=== PATIENT | female | born 1995 ===

== ENCOUNTER 2020-11-10 06:08 | Inpatient (IN) ==
[2020-11-10 07:03] LABS: Bilirubin,Urine Negative (Negative); Blood, Urine Moderate mg/dL (Negative); Glucose,Urine (UA) Negative (Negative); Ketones,Urine Negative (Negative); Nitrite,Urine Negative (Negative); Protein,Urine Negative; RBC,Urine 10 /HPF (0-4); Squamous Epithelial Cell,Urine Occasional /HPF (0-10); Urine Appearance CLEAR (Clear); Urine Color Straw (Yellow); Urine Specific Gravity 1.006 (1.001-1.035); Urine Urobilinogen < 2.0 EU/DL (0.2-1.0)
[2020-11-10] MEDS ORDERED: MEPERIDINE 50 MG/1 ML VIAL IV PRN ×2 (07:59→08:08)
[2020-11-10] MEDS ORDERED: ONDANSETRON 4 MG/2 ML VIAL IV PRN ×2 (07:59→19:08)
[2020-11-10] MEDS ORDERED: OXYTOCIN/LR 20 UNIT/1,000 ML BAG IV SCH (08:00)
[2020-11-10] MEDS ORDERED: AMPICILLIN INJ 2,000 MG in SODIUM CHLORIDE 0.9% 100 ML IV ONE (08:11)
[2020-11-10 08:25] LABS: Basophils % 0.2 % (0.0-0.8); Eosinophils # 0.1 10*3/uL (0.0-0.87); Eosinophils % 0.4 % (0.00-10.9); Hematocrit 40.2 VOL% (35.7-47.0); Hemoglobin 13.7 GM/DL (12.0-16.0); Immature Granulocytes % 0.9 %; Immature Granulocytes Absolute 0.13 #; Lymphocytes % 13.2 % (21.3-54.2); Mean Corpuscular HGB Conc 34.1 GM/DL (32-36); Mean Platelet Volume 9.6 FL (9.6-12.0); Neutrophils % 81.3 % (38.7-73.9); Platelet Count 281 T/CUMM (130-400); Red Blood Count 4.42 MC/CUMM (3.8-5.5); Red Cell Distribution Width 12.2 % (9.3-17.3)
[2020-11-10] MEDS: LACTATED RINGERS 1,000 ML IV SCH ×2 (08:34→18:55)
[2020-11-10] MEDS ORDERED: CITRIC ACID/SODIUM CITRATE 30 ML UDCUP PO ONE (08:52)
[2020-11-10] MEDS ORDERED: ePHEDrine 50 MG/ML VIAL IV PRN (08:52)
[2020-11-10] MEDS ORDERED: PROMETHAZINE 25 MG/1 ML VIAL IM ONE (08:52)
[2020-11-10] MEDS ORDERED: FAMOTIDINE 20 MG/2 ML VIAL IV ONE (08:52)
[2020-11-10] MEDS ORDERED: diphenhydrAMINE 50 MG/1 ML VIAL IV PRN ×2 (08:52)
[2020-11-10] MEDS ORDERED: hydrOXYzine HCL 25 MG/1 ML VIAL IM PRN (08:52)
[2020-11-10] MEDS ORDERED: NALOXONE 0.4 MG/ML VIAL IV PRN (08:52)
[2020-11-10] MEDS ORDERED: fentaNYL 2 MCG/ROPIV 0.2% EPID 100 ML EPIDURAL SCH (09:00)
[2020-11-10 09:02] LABS: Hepatitis B Surface Ag Quant < 0.10 Index; Hepatitis B Surface Ag Result Non-Reactive (NonReactive)
[2020-11-10] MEDS ORDERED: fentaNYL 2 MCG/ROPIV 0.2% EPID 100 ML EPIDURAL ONE (09:05)
[2020-11-10] MEDS ORDERED: ePHEDrine 50 MG/ML VIAL ONE (09:05)
[2020-11-10 09:30] LABS: HIV Antigen/Antibody Result Nonreactive (Nonreactive); Rubella Antibody IgG Result Reactive (NonReactive)
[2020-11-10 11:25] LABS: Bilirubin,Urine Negative (Negative); Blood, Urine Negative (Negative); Glucose,Urine (UA) Negative (Negative); Ketones,Urine Negative (Negative); Mucus,Urine Occasional /LPF (Occasional); Nitrite,Urine Negative (Negative); Protein,Urine Negative; RBC,Urine 1 /HPF (0-4); Squamous Epithelial Cell,Urine Occasional /HPF (0-10); Urine Appearance CLEAR (Clear); Urine Color Yellow (Yellow); Urine Specific Gravity 1.012 (1.001-1.035); Urine Urobilinogen < 2.0 EU/DL (0.2-1.0)
[2020-11-10] MEDS ORDERED: AMPICILLIN INJ 1,000 MG in SODIUM CHLORIDE 0.9% 100 ML IV SCH (12:30)
[2020-11-10] MEDS ORDERED: OXYTOCIN/LR 30 UNIT/1,000 ML BAG IV PRN (14:41)
[2020-11-10] MEDS ORDERED: miSOPROStoL 200 MCG TABLET ONE (15:15)
[2020-11-10] MEDS ORDERED: TRANEXAMIC ACID 1,000 MG/10 ML VIAL ONE (15:15)
[2020-11-10] MEDS ORDERED: CARBOPROST TROMETHAMINE 250 MCG/ML AMP IM ONE (15:16)
[2020-11-10] MEDS ORDERED: METHYLERGONOVINE 0.2 MG/1 ML AMP ONE (15:16)
[2020-11-10 17:19] LABS: Cord Venous Blood HCO3 18.9 MMOL/L; Cord Venous Blood PCO2 56.4 MMHG; Cord Venous Blood PO2 24.6
[2020-11-10 17:21] LABS: Cord Arterial Blood HCO3 16.6 MMOL/L
[2020-11-10] MEDS ORDERED: ACETAMINOPHEN 325 MG TABLET PO PRN (19:08)
[2020-11-10] MEDS ORDERED: MAGNESIUM HYDROXIDE SUSP 30 ML UDCUP PO PRN (19:08)
[2020-11-10] MEDS ORDERED: LACTATED RINGERS 1,000 ML IV SCH (19:08)
[2020-11-10] MEDS ORDERED: SIMETHICONE CHEW 80 MG TABLET PO PRN (19:08)
[2020-11-10] MEDS ORDERED: OXYTOCIN/LR 20 UNIT/1,000 ML BAG IV ONE (19:08)
[2020-11-10] MEDS ORDERED: RHO(D) IMMUNE GLOBULIN 300 MCG SYRINGE IM ONE (19:08)
[2020-11-10] MEDS: IBUPROFEN 800 MG TABLET PO PRN (19:49)
[2020-11-10] MEDS: DOCUSATE SODIUM 100 MG CAPSULE PO SCH (22:20)
[2020-11-10] MEDS ORDERED: BENZOCAINE 20%/MENTHOL 0.5% SPRAY 56 GM CAN TOP PRN (22:57)
[2020-11-11] MEDS: IBUPROFEN 800 MG TABLET PO PRN ×2 (03:02→21:30)
[2020-11-11 04:27] LABS: Basophils % 0.1 % (0.0-0.8); Eosinophils % 0.2 % (0.00-10.9); Hematocrit 29.6 VOL% (35.7-47.0); Immature Granulocytes % 0.9 %; Immature Granulocytes Absolute 0.16 #; Lymphocytes # 2.1 10*3/uL (1.4-4.0); Lymphocytes % 12.4 % (21.3-54.2); Mean Corpuscular HGB Conc 33.4 GM/DL (32-36); Mean Corpuscular Volume 93.1 FL (87-102); Mean Platelet Volume 9.8 FL (9.6-12.0); Monocytes % 5.8 % (1.7-12.7); Neutrophils % 80.6 % (38.7-73.9); Red Cell Distribution Width 12.5 % (9.3-17.3); White Blood Count 17.3 T/CUMM (4-12)
[2020-11-11 04:30] LABS: Hemoglobin 9.9 GM/DL (12.0-16.0); Platelet Count 212 T/CUMM (130-400); Red Blood Count 3.18 MC/CUMM (3.8-5.5)
[2020-11-11] MEDS: DOCUSATE SODIUM 100 MG CAPSULE PO SCH ×2 (08:42→21:30)
[2020-11-11] MEDS: MULTIVITAMIN (PRENATAL) TABLET PO SCH (08:42)
[2020-11-12] MEDS: IBUPROFEN 800 MG TABLET PO PRN (08:05)
[2020-11-12] MEDS: DOCUSATE SODIUM 100 MG CAPSULE PO SCH (08:05)
[2020-11-12] MEDS: MULTIVITAMIN (PRENATAL) TABLET PO SCH (08:05)
[2020-11-12 09:12] VITALS: BP 147/90
[2020-11-12] MEDS ORDERED: DIPH/TET/ACEL PERT BOOSTER VACCINE 0.5 ML VIAL IM ONE (11:10)
== END 2020-11-12 13:35 | disposition home or self-care (01) | DRG 560 ==
LOC: N.LDOUT 06:08 → N.LD 06:11 → N.OB 21:00
PROVIDERS: ADMIT Obstetrics & Gynecology; ATTEND Obstetrics & Gynecology

== ENCOUNTER 2022-03-12 10:18 | Inpatient (IN) ==
[2022-03-12] MEDS: LACTATED RINGERS 1,000 ML IV SCH ×2 (10:56→12:11)
[2022-03-12] MEDS ORDERED: PROMETHAZINE 25 MG/1 ML VIAL IM ONE (10:57)
[2022-03-12] MEDS: MEPERIDINE 50 MG/1 ML VIAL IV PRN (12:11)
[2022-03-12] MEDS ORDERED: METHYLERGONOVINE 0.2 MG/1 ML AMP IM PRN (15:57)
[2022-03-12] MEDS ORDERED: TRANEXAMIC ACID 1,000 MG in SODIUM CHLORIDE 0.9% 100 ML IV PRN (15:57)
[2022-03-12] MEDS ORDERED: ONDANSETRON 4 MG/2 ML VIAL IV PRN (15:57)
[2022-03-12] MEDS ORDERED: CARBOPROST TROMETHAMINE 250 MCG/ML AMP IM PRN (15:57)
[2022-03-12] MEDS ORDERED: OXYTOCIN/LR 20 UNIT/1,000 ML BAG IV ONE (15:57)
[2022-03-12] MEDS ORDERED: miSOPROStoL 200 MCG TABLET RECTAL PRN (15:57)
[2022-03-12] MEDS ORDERED: LACTATED RINGERS 500 ML IV PRN (15:57)
[2022-03-12] MEDS ORDERED: LACTATED RINGERS 1,000 ML IV SCH (16:00)
[2022-03-12 16:39] LABS: Basophils % 0.3 % (0.0-0.8); Eosinophils # 0.1 10*3/uL (0.0-0.87); Eosinophils % 0.9 % (0.00-10.9); Hematocrit 40.9 VOL% (35.7-47.0); Hemoglobin 13.8 GM/DL (12.0-16.0); Immature Granulocytes % 2.1 %; Immature Granulocytes Absolute 0.21 #; Lymphocytes # 2.2 10*3/uL (1.4-4.0); Lymphocytes % 22.6 % (21.3-54.2); Mean Corpuscular HGB Conc 33.7 GM/DL (32-36); Mean Corpuscular Volume 91.7 FL (87-102); Mean Platelet Volume 9.6 FL (9.6-12.0); Monocytes # 0.4 10*3/uL (0.11-0.8); Monocytes % 4.5 % (1.7-12.7); Neutrophils % 69.6 % (38.7-73.9); Platelet Count 237 T/CUMM (130-400); Red Blood Count 4.46 MC/CUMM (3.8-5.5); White Blood Count 9.8 T/CUMM (4-12)
[2022-03-12 16:57] LABS: Albumin 2.5 G/DL (3.4-5.0); Bilirubin,Total 0.4 MG/DL (0.20-1.00); Calcium 8.5 MG/DL (8.5-10.1); Osmolality,Calculated 271.7 MOS/KG (273-304); Potassium 4.1 MMOL/L (3.5-5.1)
[2022-03-13] MEDS ORDERED: OXYTOCIN/LR 20 UNIT/1,000 ML BAG IV SCH (00:01)
[2022-03-13] MEDS ORDERED: AMPICILLIN INJ 2,000 MG in SODIUM CHLORIDE 0.9% 100 ML IV ONE (00:01)
[2022-03-13] MEDS: MEPERIDINE 50 MG/1 ML VIAL IV PRN (03:05)
[2022-03-13] MEDS: AMPICILLIN INJ 1,000 MG in SODIUM CHLORIDE 0.9% 100 ML IV SCH ×3 (03:48→12:58)
[2022-03-13] MEDS ORDERED: PROMETHAZINE 25 MG/1 ML VIAL IM ONE (03:57)
[2022-03-13] MEDS ORDERED: hydrOXYzine HCL 25 MG/1 ML VIAL IM PRN (03:57)
[2022-03-13] MEDS ORDERED: LACTATED RINGERS 1,000 ML IV ONE (03:57)
[2022-03-13] MEDS ORDERED: ePHEDrine 50 MG/ML VIAL IV PRN (03:57)
[2022-03-13] MEDS ORDERED: diphenhydrAMINE 50 MG/1 ML VIAL IV PRN ×2 (03:57)
[2022-03-13] MEDS ORDERED: NALOXONE 0.4 MG/ML VIAL IV PRN (03:57)
[2022-03-13] MEDS ORDERED: LACTATED RINGERS 1,000 ML IV SCH (04:00)
[2022-03-13] MEDS ORDERED: NIFEdipine 10 MG CAPSULE PO ONE (04:00)
[2022-03-13] MEDS ORDERED: NIFEdipine 10 MG CAPSULE PO PRN (04:30)
[2022-03-13] MEDS ORDERED: FAMOTIDINE 20 MG/2 ML VIAL IV ONE (05:00)
[2022-03-13] MEDS ORDERED: CITRIC ACID/SODIUM CITRATE 30 ML UDCUP PO ONE (05:00)
[2022-03-13] MEDS: fentaNYL 2 MCG/ROPIV 0.2% EPID 100 ML EPIDURAL SCH ×3 (05:30→13:03)
[2022-03-13 06:53] LABS: Glucose,Urine (UA) Negative (Negative); Ketones,Urine Negative (Negative); Mucus,Urine Occasional /LPF (Occasional); Nitrite,Urine Negative (Negative); Protein,Urine Negative (Negative); RBC,Urine <1 /HPF (0-4); Urine Appearance Clear (Clear); Urine Color Yellow (Yellow); Urine Specific Gravity 1.015 (1.001-1.035); Urine pH 6.5 (4.5-8.0)
[2022-03-13 06:54] LABS: Bilirubin,Urine Negative (Negative); Blood, Urine Trace mg/dL (Negative); Urine Urobilinogen 0.2 eU/dL (<2.0)
[2022-03-13] MEDS ORDERED: OXYTOCIN/LR 30 UNIT/1,000 ML BAG IV ONE (07:39)
[2022-03-13] MEDS ORDERED: diphenhydrAMINE 50 MG/1 ML VIAL IV ONE (10:28)
[2022-03-13] MEDS ORDERED: SODIUM CHLORIDE 0.9% 0 ML IV ONE (13:23)
[2022-03-13] MEDS ORDERED: miSOPROStoL 200 MCG TABLET ONE (13:23)
[2022-03-13] MEDS ORDERED: METHYLERGONOVINE 0.2 MG/1 ML AMP ONE (13:23)
[2022-03-13] MEDS ORDERED: CARBOPROST TROMETHAMINE 250 MCG/ML AMP IM ONE (13:23)
[2022-03-13] MEDS ORDERED: TRANEXAMIC ACID 1,000 MG/10 ML VIAL ONE (13:23)
[2022-03-13 14:19] LABS: Cord Venous Blood HCO3 21.2 MMOL/L; Cord Venous Blood PCO2 53.4 MMHG; Cord Venous Blood PO2 28.9
[2022-03-13] MEDS ORDERED: LIDOCAINE 1% 20 ML VIAL IM ONE (15:44)
[2022-03-13] MEDS ORDERED: OXYTOCIN/LR 20 UNIT/1,000 ML BAG IV ONE ×2 (15:56→17:48)
[2022-03-13] MEDS ORDERED: RHO(D) IMMUNE GLOBULIN 300 MCG SYRINGE IM ONE (17:48)
[2022-03-13] MEDS ORDERED: MEASLES/MUMPS/RUBELLA VACCINE 0.5 ML VIAL SUBCUT ONE (17:48)
[2022-03-13] MEDS ORDERED: DIPH/TET/ACEL PERT BOOSTER VACCINE 0.5 ML VIAL IM ONE (17:48)
[2022-03-13] MEDS ORDERED: BENZOCAINE 20%/MENTHOL 0.5% SPRAY 56 GM CAN TOP PRN (17:48)
[2022-03-13] MEDS ORDERED: WITCH HAZEL PADS 100/JAR TOP PRN (17:48)
[2022-03-13] MEDS ORDERED: oxyCODONE/ACETAMINOPHEN 5-325 MG TABLET PO PRN (17:48)
[2022-03-13] MEDS ORDERED: HYDROCORTISONE 2.5% RECTAL CREAM 30 GM TUBE TOP PRN (17:48)
[2022-03-13] MEDS ORDERED: ACETAMINOPHEN 325 MG TABLET PO PRN (17:48)
[2022-03-13] MEDS ORDERED: LANOLIN 50% CREAM 0.3 OZ TUBE TOP PRN (17:48)
[2022-03-13] MEDS ORDERED: BISACODYL 10 MG SUPP RECTAL PRN (17:48)
[2022-03-13] MEDS: oxyCODONE/ACETAMINOPHEN 5-325 MG TABLET PO PRN (18:10)
[2022-03-13] MEDS: DOCUSATE SODIUM 100 MG CAPSULE PO SCH (20:48)
[2022-03-13] MEDS: IBUPROFEN 800 MG TABLET PO PRN (20:49)
[2022-03-14 05:45] LABS: Basophils % 0.1 % (0.0-0.8); Eosinophils # 0.1 10*3/uL (0.0-0.87); Eosinophils % 0.6 % (0.00-10.9); Immature Granulocytes % 1.2 %; Immature Granulocytes Absolute 0.16 #; Lymphocytes # 2.5 10*3/uL (1.4-4.0); Lymphocytes % 18.8 % (21.3-54.2); Mean Corpuscular HGB Conc 33.6 GM/DL (32-36); Mean Corpuscular Volume 92.4 FL (87-102); Mean Platelet Volume 9.8 FL (9.6-12.0); Monocytes # 0.7 10*3/uL (0.11-0.8); Monocytes % 5.2 % (1.7-12.7); Neutrophils % 74.1 % (38.7-73.9); Platelet Count 208 T/CUMM (130-400); Red Cell Distribution Width 13.1 % (9.3-17.3)
[2022-03-14 05:48] LABS: Hemoglobin 9.4 GM/DL (12.0-16.0); Red Blood Count 3.03 MC/CUMM (3.8-5.5); White Blood Count 13.4 T/CUMM (4-12)
[2022-03-14] MEDS: oxyCODONE/ACETAMINOPHEN 5-325 MG TABLET PO PRN ×3 (07:05→18:27)
[2022-03-14] MEDS ORDERED: INFLUENZA VIRUS VACCINE 0.5 ML SYRINGE IM ONE (09:00)
[2022-03-14] MEDS: DOCUSATE SODIUM 100 MG CAPSULE PO SCH ×2 (09:40→20:35)
[2022-03-14] MEDS: IBUPROFEN 800 MG TABLET PO PRN ×2 (12:12→18:27)
[2022-03-15] MEDS: IBUPROFEN 800 MG TABLET PO PRN (02:30)
[2022-03-15] MEDS: DOCUSATE SODIUM 100 MG CAPSULE PO SCH (08:10)
[2022-03-15] MEDS: oxyCODONE/ACETAMINOPHEN 5-325 MG TABLET PO PRN (08:11)
[2022-03-15 09:42] VITALS: BP 160/91
[2022-03-15] MEDS ORDERED: INFLUENZA VIRUS VACCINE 0.5 ML SYRINGE IM ONE (11:15)
== END 2022-03-15 13:20 | disposition home or self-care (01) | DRG 560 ==
LOC: N.LD 10:18 → N.OB 03-13 17:25
PROVIDERS: ADMIT Obstetrics & Gynecology; ATTEND Obstetrics & Gynecology